=== PATIENT | male | born 1990 | race Caucasian/White ===

== ENCOUNTER 2019-04-02 10:27 | Emergency (ER) | payer OTHER ==
--- NOTE | 2019-04-02 11:53 | XRAY Report ---
Reason: dislocation Procedure Date: 04/02/2019 Accession Number: [id number] / [id number] Procedure: XR - Shoulder 2 View LT CPT Code: Final Report FULL RESULT: EXAM: LEFT SHOULDER RADIOGRAPHY EXAM DATE: 04/02/2019 11:24 AM. CLINICAL HISTORY: Dislocation. COMPARISON: None. TECHNIQUE: 3 views. FINDINGS: Bones: . No fracture or bone lesion. Joints: Anterior and inferior dislocation of the left humeral head. Soft tissues: The visualized hemithorax is unremarkable. No soft tissue swelling. IMPRESSION: Dislocation of the left humeral head. [facility]
--- NOTE | 2019-04-02 12:41 | ED Physician Documentation ---
PD HPI UPPER EXT INJURY - Stated complaint Stated Complaint: L SHOULDER INJ - Chief complaint Chief Complaint: Trauma Ext - History obtained from History obtained from: Patient - History of Present Illness Location: Left, Shoulder Type of injury: Blunt / blow (he was leaning against object with his shoulder and shifte his weight, and his shoulder popped out. has had it dislocate 3 times prior with the first one being the signifcant injury with longer healing.) Where injury occurred: Work Timing - onset: How many hours ago (1), Today Timing - duration: Hours (1) Timing - details: Abrupt onset, Still present Worsened by: Moving, Palpating Associated symptoms: No: Weakness, Numbness Contributing factors: No: Anticoagulated, Prior ortho surgery Similar symptoms before: Diagnosis (recurrent anterior shoulder dislocation) Recently seen: Not recently seen Review of Systems Skin: denies: Abrasion (s), Laceration (s) Neurologic: denies: Focal weakness, Numbness PD PAST MEDICAL HISTORY - Past Medical History Past Medical History: No Musculoskeletal: Other (prior shoulder dislocation) - Present Medications Home Medications: Ambulatory Orders Medication Instructions Recorded Confirmed Ibuprofen [Motrin] 600 mg PO TID PRN #25 tab 04/02/19 - Allergies Allergies/Adverse Reactions: Allergies Allergy/AdvReac Type Severity Reaction Status Date / Time No Known Drug Allergies Allergy Verified 04/02/19 10:37 PD ED PE NORMAL - Vitals Vital signs reviewed: Yes - General General: Alert and oriented X 3, Well developed/nourished, Other (appears uncomfortable with any left shoulder movement. Guarding it to his side. ) - Cardiac Cardiac: RRR, No murmur - Respiratory Respiratory: Clear bilaterally - Derm Derm: Normal color, Warm and dry, No rash - Extremities Extremities: Other (left shoulder with obvious anterior dislocation. ) - Neuro Neuro: No motor deficit, No sensory deficit Results - Vitals Vitals: Vital Signs - 24 hr 04/02/19 04/02/19 10:37 13:14 Temperature 36.8 C Heart Rate 72 98 Respiratory 17 18 Rate Blood Pressure 148/86 H 146/94 H O2 Saturation 100 100 Oxygen O2 Source Room air - Rads (name of study) shoulder xray Radiology: Prelim report reviewed, EMP read contemporaneously (anterior/inferior shoulder dislocation), See rad report post reduction Radiology: Prelim report reviewed (improved location), EMP read contemporaneously, See rad report Procedures - Reduction Body part reduced: Left, Shoulder Fracture or dislocation: Dislocation Anesthesia: No: Conscious sedation Shoulder reduction technique: [place] / ext rotation Reduction aftercare: NV intact, Xray confirms reduction, Alignment improved, Sling, Patient tolerated well PD MEDICAL DECISION MAKING - ED course Complexity details: reviewed results, considered differential, d/w patient Departure - Departure Disposition: 01 Home, Self Care Clinical Impression: Anterior shoulder dislocation Qualifiers: Encounter type: initial encounter Laterality: left Qualified Code(s): S43.015A - Anterior dislocation of left humerus, initial encounter Condition: Stable Record reviewed to determine appropriate education?: Yes Instructions: ED Dislocation Shoulder Redu Follow-Up: CAROL Mandujano [Provider Group] Prescriptions: Ibuprofen [Motrin] 600 mg PO TID PRN #25 tab PRN Reason: Pain Comments: Minimal use of the left shoulder for 5-7 days due to recurrent dislocation. Fol low-up with your primary care for reevaluation before returning to normal use. Sling if needed for comfort. Ibuprofen 3 times a day and add Tylenol if needed. Discharge Date/Time: 04/02/19 13:20
[2019-04-02] MEDS ORDERED: ACETAMINOPHEN 325 MG TABLET PO STA (12:50)
[2019-04-02] MEDS ORDERED: IBUPROFEN 600 MG TABLET PO STA (12:50)
[2019-04-02 13:15] VITALS: BP 146/94
--- NOTE | 2019-04-02 13:29 | XRAY Report ---
Reason: post reduction Procedure Date: 04/02/2019 Accession Number: [id number] / [id number] Procedure: XR - Shoulder 2 View LT CPT Code: Final Report FULL RESULT: EXAM: LEFT SHOULDER RADIOGRAPHY EXAM DATE: 04/02/2019 01:01 PM. CLINICAL HISTORY: Left shoulder dislocation. Status post reduction. COMPARISON: SHOULDER 2 VIEW LT 04/02/2019 11:16 AM. TECHNIQUE: 2 views. FINDINGS: Bones: Irregular oval and linear calcific density is seen along the medial left humeral shaft near the humeral neck measuring 8 mm. Contour deformity of the left Superolateral humeral head is consistent with a cortical fracture and Hill-Sachs defect. Joints: Anatomic alignment and reduction of the left glenohumeral joint dislocation. Soft tissues: The visualized hemithorax is unremarkable. No soft tissue swelling. IMPRESSION: 1. Interval reduction of the left glenohumeral joint dislocation now in anatomic alignment. 2. Left humeral head Hill-Sachs defect. Calcific density along the medial left humeral shaft appears chronic rather than acute. [facility]
== END 2019-04-02 13:20 | disposition home or self-care (01) ==
LOC: ED 10:27
DX: M24.412 Recurrent dislocation, left shoulder (principal); X50.1XXA Overexertion from prolonged static or awkward postures, initial encounter; Y93.89 Activity, other specified; Y99.0 Civilian activity done for income or pay
CPT/HCPCS: 23650; 73030; 99283; 99284; A9270